=== PATIENT | male | born 1985 | race Caucasian/White ===

== ENCOUNTER 2017-10-24 18:38 | Inpatient (IN) ==
[2017-10-24 19:20] LABS: Hematocrit 41.2 % (37.5-50.1); Hemoglobin 13.2 g/dL (12.9-16.9); Mean Corpuscular Hemoglobin 27.5 pg (28.0-33.3); Mean Corpuscular Volume 85.8 fL (83.0-100.0); Mean Platelet Volume 10.5 fL (9.4-12.4); Platelet Count 232 K/mcL (140-400); Red Cell Distribution Width 15.6 % (11.5-14.5)
[2017-10-24] MEDS ORDERED: Ondansetron 4 MG/2 ML VIAL IVP ONE (19:22)
[2017-10-24] MEDS ORDERED: 0.9 % Sodium Chloride 1,000 ML IVC ONE (19:22)
[2017-10-24 19:26] LABS: INR 1.2; Prothrombin Time 12.8 Seconds (9.4-12.1)
--- NOTE | 2017-10-24 19:26 | Emergency Department Note ---
Disposition Clinical Impression: Acute liver failure Qualifiers: Hepatic coma status: without hepatic coma Qualified Code(s): K72.00 - Acute and subacute hepatic failure without coma Hepatitis C Qualifiers: Viral hepatitis chronicity: unspecified Hepatic coma status: without hepatic coma Qualified Code(s): B19.20 - Unspecified viral hepatitis C without hepatic coma Disposition: Admitted As Inpatient Condition: Fair Nausea/Vomiting/Diarrhea HPI - General Chief complaint: ED Nausea/Vomiting/Diarrhea Stated complaint: liver disease Time Seen by Provider: 10/24/17 19:16 Source: patient, family Mode of arrival: private vehicle Limitations: no limitations Nursing Notes Reviewed: Yes Vital Signs Reviewed: Yes - History of Present Illness HPI Narrative: 32-year-old male history of hepatitis C without previous treatment contracted forward a half years ago of unknown etiology who presents to the ER due to jaundice nausea vomiting abdominal pain. Patient reports abdominal pain around his belly button for the last 2 weeks. States she has had intermittent nausea and vomiting with difficulty eating. States that he started to turn yellow 2 days ago. Reports this happen once whenever he was diagnosed, once in between and now this be the third time. He does endorse a history of IV drug use most recently 3 weeks ago. He denies any history of endocarditis, fevers or valve replacements. Denies prior treatment for his hepatitis. No other complaints. Pt Subjective Complaint: nausea, vomiting, abdominal pain Onset (ago): day(s) Associated Abdominal Pain: Yes If pain, Location of pain: periumbilical Severity: moderate Improves with: nothing Worsens with: nonthing Associated symptoms: Reports: loss of appetite, nausea/vomiting. Denies: fever/ chills - Related Data Home Medications Medication Instructions Recorded Confirmed No Known Home Drugs 10/24/17 10/24/17 Allergies Allergy/AdvReac Type Severity Reaction Status Date / Time No Known Allergies Allergy Verified 10/24/17 18:43 All systems ED: reviewed and negative except as stated. Constitutional: Denies: fever Gastrointestinal: Reports: abdominal pain, nausea, vomiting. Denies: diarrhea Genitourinary: Denies: dysuria, hematuria Past Medical History - Past Medical History Attestation: Yes The following information was validated with the patient. Source: patient Medical history: Reports: hepatitis Psychiatric history: Reports: no psych history - Social History Smoking Status: Current every day smoker Smokeless Tobacco Status: No Alcohol use: Reports: none Drug use: Reports: methamphetamine, IV Drug Use Physical Exam - General Limitations: no limitations General appearance: alert, in no apparent distress - Head Head exam: atraumatic, normocephalic - Eye Eye exam: Present: normal appearance, scleral icterus - ENT ENT exam: normal exam - Neck Neck exam: Present: normal inspection, full ROM - Chest Chest inspection: Present: normal inspection, symmetric chest wall rise - Respiratory Respiratory exam: Present: normal lung sounds bilaterally - Cardiovascular Cardiovascular exam: Present: regular rate, normal rhythm, normal heart sounds - Abdominal Exam Abdominal exam: Present: soft, tenderness (Mild periumbilical tenderness without rigidity guarding or distention.). Absent: distention, guarding, rigidity - Extremities Exam Extremities exam: Present: normal inspection, full ROM - Expanded Upper Extremity Exam Shoulder exam: Present: normal inspection, full ROM Arm exam: Present: normal inspection, full ROM Elbow exam: Present: normal inspection, full ROM Forearm/Wrist exam: Present: normal inspection, full ROM Hand exam: Present: normal inspection, full ROM - Expanded Lower Extremity Exam Hip/Pelvis exam: Present: normal inspection, full ROM Upper leg exam: Present: normal inspection, full ROM Knee exam: Present: normal inspection, full ROM Lower leg exam: Present: normal inspection, full ROM Ankle exam: Present: normal inspection, full ROM Foot/toe exam: Present: normal inspection, full ROM - Skin Skin exam: Present: other (Diffuse jaundice) Course Course Narrative: Patient seen and examined. Nonsurgical abdominal exam. Note to be jaundice. We will get labs including LFTs, hepatitis profile, INR, give IV fluids and Zofran and reassess. He will also need referral to GI as he has no current follow-up with the provider. - Reevaluation(s) Reevaluation #1: Discussed results of imaging and labs with the patient and family. Agreeable with staying. Reevaluation #2: Spoke with the hospitalist that I spoke with gastroenterology who is comfortable with the patient staying here. - Consultations Consultation #1: I spoke with the on-call head of store operations Dr. Azevedo at the request of the hospitalist. Discussed the patient's history as well as labs and interventions. He is comfortable with the patient staying here and will see the patient in consultation. Vital Signs Temperature 97.9 F 02/14/18 18:43 Pulse Rate 93 10/24/17 18:43 Respiratory Rate 16 10/24/17 18:43 Blood Pressure 139/88 10/24/17 18:43 O2 Sat by Pulse Oximetry 100 10/24/17 18:43 Temperature 97.9 F 10/24/17 18:43 Pulse Rate 78 10/24/17 21:56 Respiratory Rate 18 10/24/17 21:56 Blood Pressure 121/88 10/24/17 21:56 O2 Sat by Pulse Oximetry 100 10/24/17 18:43 Oxygen Delivery Oxygen Delivery Room Air Nausea/Vomiting/Diarrhea - [facility] Narrative Medical decision making narrative: 32-year-old male presents to the ER due to jaundice and abdominal pain. History of hepatitis C. Noted to be in acute liver failure here with transaminitis. INR is normal. Creatinine is normal. He is not acidotic. Mentating appropriately. Case discussed with on-call gastrologist. Admitted to the hospitalist service. - Lab Data Lab results reviewed: Yes I reviewed the patient's lab results. Result diagrams: 10/24/17 19:01 10/24/17 19:01 Lab Results 10/24/17 10/24/17 10/24/17 Range/Units 19:01 19:01 19:01 WBC 6.0 (4.3-11.1) K/mcL RBC 4.80 (4.19-5.50) M/mcL Hgb 13.2 (12.9-16.9) g/dL Hct 41.2 (37.5-50.1) % MCV 85.8 (83.0-100.0) fL MCH 27.5 L (28.0-33.3) pg MCHC 32.0 (31.6-35.5) g/dL RDW 15.6 H (11.5-14.5) % Plt Count 232 (140-400) K/mcL MPV 10.5 (9.4-12.4) fL PT 12.8 H (9.4-12.1) Seconds INR 1.2 APTT 35.4 (26.0-36.0) Seconds Sodium 135 L (136-145) mEq/L Potassium 3.7 (3.5-5.1) mEq/L Chloride 103 (98-107) mEq/L Carbon Dioxide 27 (23-29) mEq/L BUN 9 (6-20) mg/dL Creatinine 0.97 (0.70-1.30) mg/dL Est GFR ( Amer) > 60 (> 60) Est GFR (Non-Af Amer) > 60 (> 60) BUN/Creatinine Ratio 9 (6-26) Glucose 86 (70-105) mg/dL Calculated Osmolality 278 L (280-300) Calcium 9.0 (8.6-10.3) mg/dL Total Bilirubin 11.0 H (0.3-1.0) mg/dL Direct Bilirubin 7.2 H (0.0-0.2) mg/dL Indirect Bilirubin 3.8 H (0.0-1.2) mg/dL AST 1056 H (13-39) Units/L ALT > 500 H (7-52) Units/L Alkaline Phosphatase 262 H (34-104) Units/L Serum Total Protein 7.2 (6.4-8.9) g/dL Albumin 3.8 (3.5-5.7) g/dL Globulin 3.4 (2.4-3.5) g/dL Albumin/Globulin Ratio 1.1 (1.1-2.2) Lipase 43 (11-82) Units/L Urine Color (Yellow) Urine Clarity (Clear) Urine pH (5.0-8.0) pH Units Ur Specific [place] (1.010-1.025) Urine Protein (Neg-Trace) mg/dL Urine Glucose (UA) (Normal) mg/dL Urine Ketones (Negative) mg/dL Urine Blood (Negative) Urine Nitrite (Negative) Urine Bilirubin (Negative) Urine Urobilinogen (Normal) mg/dL Ur Leukocyte Esterase (Negative) Urine Microscopic RBC (0-3) per hpf Urine Microscopic WBC (0-3) per hpf Ur Squamous Epith Cells (None-Few) per lpf Calcium Oxalate Crystal Urine Bacteria (None-Few) per hpf Hyaline Casts (None-Few) per lpf Hepatitis A IgM Ab (Nonreactive) Hep Bs Antigen (Nonreactive) Hep B Core IgM Ab (Nonreactive) Hepatitis C Ab Screen (Nonreactive) 10/24/17 10/24/17 Range/Units 19:40 20:13 WBC (4.3-11.1) K/mcL RBC (4.19-5.50) M/mcL Hgb (12.9-16.9) g/dL Hct (37.5-50.1) % MCV (83.0-100.0) fL MCH (28.0-33.3) pg MCHC (31.6-35.5) g/dL RDW (11.5-14.5) % Plt Count (140-400) K/mcL MPV (9.4-12.4) fL PT (9.4-12.1) Seconds INR APTT (26.0-36.0) Seconds Sodium (136-145) mEq/L Potassium (3.5-5.1) mEq/L Chloride (98-107) mEq/L Carbon Dioxide (23-29) mEq/L BUN (6-20) mg/dL Creatinine (0.70-1.30) mg/dL Est GFR ( Amer) (> 60) Est GFR (Non-Af Amer) (> 60) BUN/Creatinine Ratio (6-26) Glucose (70-105) mg/dL Calculated Osmolality (280-300) Calcium (8.6-10.3) mg/dL Total Bilirubin (0.3-1.0) mg/dL Direct Bilirubin (0.0-0.2) mg/dL Indirect Bilirubin (0.0-1.2) mg/dL AST (13-39) Units/L ALT (7-52) Units/L Alkaline Phosphatase (34-104) Units/L Serum Total Protein (6.4-8.9) g/dL Albumin (3.5-5.7) g/dL Globulin (2.4-3.5) g/dL Albumin/Globulin Ratio (1.1-2.2) Lipase (11-82) Units/L Urine Color [place] A (Yellow) Urine Clarity Cloudy A (Clear) Urine pH 6.0 (5.0-8.0) pH Units Ur Specific [place] 1.022 (1.010-1.025) Urine Protein Negative (Neg-Trace) mg/dL Urine Glucose (UA) Normal (Normal) mg/dL Urine Ketones Negative (Negative) mg/dL Urine Blood Negative (Negative) Urine Nitrite Positive A (Negative) Urine Bilirubin Large H (Negative) Urine Urobilinogen Normal (Normal) mg/dL Ur Leukocyte Esterase Small H (Negative) Urine Microscopic RBC 3-5 H (0-3) per hpf Urine Microscopic WBC 0-3 (0-3) per hpf Ur Squamous Epith Cells None Seen (None-Few) per lpf Calcium Oxalate Crystal Present Urine Bacteria Few (None-Few) per hpf Hyaline Casts None Seen (None-Few) per lpf Hepatitis A IgM Ab Nonreactive (Nonreactive) Hep Bs Antigen Reactive H (Nonreactive) Hep B Core IgM Ab Reactive H (Nonreactive) Hepatitis C Ab Screen Reactive H (Nonreactive) - Radiology Data Radiology results reviewed: Yes I reviewed the patient's radiology results. Abdomen/Pelvis CT 10/24/17 20:31 IMPRESSION: 1. Large amount of stool throughout the colon suggesting constipation. Otherwise, no acute abdominopelvic abnormality. 2. Findings of mild acute bronchiolitis in the right middle lobe. D/ / Catrachito Best / Catrachito Best Interpreting Provider: Catrachito Best S.Janette.Bridgette - Renee Situation: Demographics, MOA Background: Presenting Complaint, Relevant PMH, Meds, & Allergies Assessment: Course and respsone to treatment, Exam Concerns, Patient/Family Expectation, Pertinant Lab Results Recommendation: Barrier(s) to disposition, Recommendation based on pending studies, treatments, or consults S.B.A.Rosetta Report Given to: Dr. Kimo Duran Repor Time: 22:22 (Request I speak with gastroenterology) Attestation Statement - Attestation Attestation: I, Santiago Cagle MD, personally evaluated this patient and discussed their management with the resident physician. I reviewed the resident's note and agree with the documented findings, medical decision making, and plan of care. 32-year-old male with known history of hepatitis C and is not on any treatment presents complaining of periumbilical abdominal pain associated with nausea and vomiting for 2 weeks prior to arrival. Over the past few days he has noticed some jaundice. He also states his urine has been very dark colored for the past 2 weeks. No fever. No melena, hematemesis, or hematochezia. On examination patient is a well-developed well-nourished well-appearing male in no acute distress. He is alert and oriented 3. There is no cyanosis or diaphoresis. There is mild jaundice and scleral icterus. Breath sounds are clear and equal bilaterally. Heart regular rate and rhythm. Abdomen is soft with normal bowel sounds. There is mild epigastric and right upper quadrant tenderness as well as periumbilical tenderness. No guarding or rebound tenderness. No tympany or distention. No CVA tenderness. Labs reviewed. Total bilirubin 11.0 with elevated hepatic enzymes. CT of abdomen and pelvis shows constipation and some bronchiolitis in the right middle lobe. Otherwise no acute abnormality. Dr. Romo discussed the case with the head of store operations, Dr. Azevedo, at the request of the hospitalist. He is agreeable with keeping patient here. The hospitalist , Dr. Malin, was consulted and accepted admission of the patient.
[2017-10-24 19:29] LABS: Activated Partial Thrombo Time 35.4 Seconds (26.0-36.0)
[2017-10-24 19:49] LABS: Bilirubin,Urine Large (Negative); Blood,Urine Negative (Negative); Clarity,Urine Cloudy (Clear); Color,Urine Orange (Yellow); Glucose,Urine (UA) Normal (Normal); Ketones,Urine Negative (Negative); Leukocyte Esterase,Urine Small (Negative); Nitrite,Urine Positive (Negative); Protein,Urine Negative (Neg-Trace); Specific Gravity,Urine 1.022 (1.010-1.025); Urobilinogen,Urine Normal (Normal)
[2017-10-24 19:51] LABS: Hyaline Casts,Urine None Seen per lpf (None-Few); Squamous Epithelial Cell,Urine None Seen per lpf (None-Few); WBC,Urine 0-3 per hpf (0-3)
[2017-10-24 20:00] LABS: Bacteria,Urine Few per hpf (None-Few); Calcium Oxalate Crystals,Urine Present
[2017-10-24 20:04] LABS: Alanine Aminotransferase > 500 Units/L (7-52); Albumin 3.8 g/dL (3.5-5.7); Albumin/Globulin Ratio 1.1 (1.1-2.2); Alkaline Phosphatase 262 Units/L (34-104); Aspartate Amino Transferase 1056 Units/L (13-39); BUN/Creatinine Ratio 9 (6-26); Bilirubin,Direct 7.2 mg/dL (0.0-0.2); Bilirubin,Indirect 3.8 mg/dL (0.0-1.2); Blood Urea Nitrogen 9 mg/dL (6-20); Carbon Dioxide 27 mEq/L (23-29); Chloride 103 mEq/L (98-107); Globulin 3.4 g/dL (2.4-3.5); Glucose 86 mg/dL (70-105); Lipase 43 Units/L (11-82); Osmolality,Calculated 278 (280-300); Potassium 3.7 mEq/L (3.5-5.1); Sodium 135 mEq/L (136-145); Total Protein 7.2 g/dL (6.4-8.9); eGFR For African Americans > 60 (> 60); eGFR For Non-African Americans > 60 (> 60)
[2017-10-24 22:08] LABS: Hepatitis A Antibody IgM Nonreactive (Nonreactive)
[2017-10-24 22:27] LABS: Hepatitis B Core IgM Reactive (Nonreactive); Hepatitis B Surface Antigen Reactive (Nonreactive)
[2017-10-24 22:28] LABS: Hepatitis C Virus Antibody Reactive (Nonreactive)
--- NOTE | 2017-10-24 23:58 | Internal Med History&Physical ---
<Kaila Garcia - Last Filed: 10/25/17 05:21> Date of Encounter: 10/25/17 Time of Encounter: 23:58 Assessment and Plan (1) Hepatitis B Current visit: Yes Status: Acute Hepatitis panel shows Hep B surface antigen reactive and Hep B core IgM antibody reactive--unclear whether this is an acute infection or flare-up of chronic Hep B, as these results can occur in both acute and chronic forms of Hep B. According to pt's mother, pt had childhood Hep B immunizations, but pt missed what sounds like Hep B booster shot around the time he was diagnosed with Hep C. - Gastroenterology aware, consult pending--recommendations appreciated Qualifiers: Viral hepatitis chronicity: unspecified Hepatic coma status: without hepatic coma (2) Transaminitis Current visit: Yes Status: Acute Initial labwork shows AST 1056 and ALT > 500. Degree of elevation in transaminases and increased AST:ALT ratio possibly related to flare of pt's chronic Hep C or infection with Hep B. - monitor AST and ALT levels with morning CMP - avoid hepatoxic drugs and use hepatic dosing when possible (3) Hepatitis C without hepatic coma Current visit: Yes Status: Chronic Known h/o untreated Hep C, hepatitis screen shows reactivity with Hep C antibody. Hep C diagnosed 4 to 5 years ago, per pt. - Gastroenterology aware, consult pending--recommendations appreciated - [place] precautions for bloodborne pathogen - Avoid hepatotoxic drugs and use hepatic dosing if possible (4) Abdominal pain Current visit: Yes Status: Acute Likely d/t constipation as evidenced on imaging--CT abdomen pelvis demonstrates large amount of stool in colon that is suggestive of constipation; no other acute abdominopelvic abnormality. Non tender to palpation of RUQ, LUQ, or midepigastric area. Lipase WNL. Symptomatic management at this time. - Famotidine 20mg PO BID - Clear liquid diet for now - Ketorolac 15mg IVP q6h PRN for pain Qualifiers: Abdominal location: right lower quadrant Qualified Code(s): R10.31 - Right lower quadrant pain (5) Nausea & vomiting Current visit: Yes Status: Acute Based on initial labs and overall appearance, pt doesn't appear dehydrated. Potassium and chloride WNL on initial labs. - Recheck electrolytes in AM, replace as needed - IV fluids--NS @ 100mL/hr - Clear liquid diet for now - Zofran PRN (6) Hyperbilirubinemia Current visit: Yes Status: Acute Internal Medicine - H&P: HPI Chief complaint: N/V, jaundice Admitted From: Home History of present illness: Mr. Cabezas is a 32 year old male with PMH of Hep C and IVDU who presents with c/ o jaundice x 3 days, N/V and abdominal pain x2 weeks. Patient states he can't keep anything down and that nothing improves his nausea and vomiting other than not eating; pt states N/V worse after eating meat, but doesn't elaborate further. Tolerating liquids well. He denies coffee-ground emesis and doesn't think he's had blood in his vomit, but has had red-tinged vomit which he attributes to something he's eaten. Pt's abdominal pain is located along lower abdomen, described as dull and squeezing. The abdominal pain is constant with occasional increases in severity which pt is unable to connect to any specific action. He denies diarrhea and constipation. Admits to increased heartburn and is taking antacids for this. This isn't pt's first time having jaundice, last episode was 4 to 5 years ago--it was also around this time he was diagnosed with Hep C. He has never received treatment for Hep C. Pt states he last used IV drugs 3 to 4 weeks ago, doesn't remember what kind of drugs he injected. He denies any previous h/o endocarditis or problems with heart valves, but admits to occasional palpitations--his mother, also present in the room, thinks he may have been diagnosed with a murmur in childhood. He denies associated fevers, chills, night sweats, chest pain, edema, dyspnea, cough. Past Med Surg Social Fam HX - Past Medical History Medical history: hepatitis Psychiatric history: no psych history - Social History Smoking Status: Current every day smoker Smokeless Tobacco Status: No Alcohol use: none Drug use: methamphetamine, IV Drug Use - Family History Mother Adopted: No Hx Family Musculoskeletal Disorders: Yes (hip replacements.) Internal Medicine - H&P: Meds No Known Home Drugs 10/24/17 [History] 3 Allergy/AdvReac Type Severity Reaction Status Date / Time No Known Allergies Allergy Verified 10/24/17 18:43 All Systems PM: A 10-system review of systems was performed and is negative for pertinent findings except as documented above in the HPI. - Constitutional Constitutional: no chills, no fever(s), no night sweats - EENT Eyes: no blurry vision, no change in vision, no diplopia - Cardiovascular Cardiovascular ROS IM: palpitations, no chest pain, no diaphoresis, no dyspnea, no edema, no irregular heart rhythm - Respiratory Respiratory: no cough, no dyspnea, no wheezing - Gastrointestinal Gastrointestinal: as per HPI - Constitutional Vitals: Temp Pulse Resp BP Pulse Ox 97.9 F 78 18 121/88 100 10/24/17 18:43 10/24/17 21:56 10/24/17 22:57 10/24/17 22:57 10/24/17 18:43 General appearance: Present: A&O X 3, no acute distress, answers questions appropriately Exam: jaundice, scleral icterus - Head Head exam: Present: atraumatic, normocephalic - Eye Eye exam: Present: EOMI, PERRL, scleral icterus - Neck Neck exam general surgery: Present: full ROM, supple - Respiratory Respiratory exam: Present: CTAB. Absent: respiratory distress, wheezes - Cardiovascular Cardiovascular exam: Present: RRR, +S1, +S2 Additional comments: no murmurs auscultated - GI/Abdominal GI/Abdominal exam: Present: guarding (voluntary), normal bowel sounds, soft, tenderness (LLQ, RLQ), no peritoneal signs. Absent: distended, rebound, rigid - Extremities Exam Extremities exam: Present: full ROM, warm. Absent: pedal edema Additional comments: DP pulses 2+ - Back Exam Back exam: Present: normal inspection - Neurological Exam Neurological exam: Present: alert, CN II-XII intact, no focal deficits - Expanded Neurological Exam Patient oriented to: Present: person, place, time Speech: Present: fluid speech - Psychiatric Psychiatric exam: Present: normal affect, normal mood - Skin Skin exam: Present: warm. Absent: diaphoretic, erythema, petechiae Additional comments: jaundice Internal Med - H&P Results - Labs CBC & Chem 7: 10/25/17 03:56 10/24/17 19:01 <Salma Malin - Last Filed: 10/25/17 05:22> Date of Encounter: 10/25/17 Internal Medicine - H&P: HPI History of present illness: Mr. Cabezas is a 32 year old male All Systems PM: A 10-system review of systems was performed and is negative for pertinent findings except as documented above in the HPI. - Constitutional Vitals: Temp Pulse Resp BP Pulse Ox 98.1 F 86 15 115/72 96 10/25/17 03:47 10/25/17 03:47 10/25/17 03:47 10/25/17 03:47 10/25/17 03:47 Internal Med - H&P Results - Labs CBC & Chem 7: 10/25/17 03:56 10/24/17 19:01 Labs: Short CBC 10/25/17 Range/Units 03:56 WBC 6.3 (4.3-11.1) K/mcL Hgb 12.0 L (12.9-16.9) g/dL Hct 36.5 L (37.5-50.1) % Plt Count 221 (140-400) K/mcL Neutrophils # 2.8 (1.6-8.9) K/mcL - Attending Attestation I have seen and examined this pt independently. I have discussed with resident physician Dr Garcia regarding the management plan. Agree with the documentation.
[2017-10-25] MEDS ORDERED: Naloxone 0.4 MG/ML INJ IVP PRN (00:49)
[2017-10-25] MEDS ORDERED: Ondansetron 4 MG/2 ML VIAL IVP PRN (00:52)
[2017-10-25] MEDS ORDERED: Famotidine 20 MG/2 ML VIAL IVP ONE (00:55)
[2017-10-25] MEDS ORDERED: *HR* OxyCODONE/APAP 5/325 TABLET PO PRN (01:54)
[2017-10-25] MEDS: 0.9 % Sodium Chloride 1,000 ML IVC SCH ×2 (04:05→10:07)
[2017-10-25] MEDS: Ketorolac 15 MG/ML VIAL IVP PRN ×2 (04:12→10:06)
[2017-10-25 04:25] LABS: Basophils % 0.6 %; Eosinophils # 0.2 K/mcL (0.0-0.6); Eosinophils % 2.9 %; Hematocrit 36.5 % (37.5-50.1); Immature Granulocytes % 0.3 % (0-4); Lymphocytes # 2.5 K/mcL (0.6-4.6); Mean Corpuscular HGB Conc 32.9 g/dL (31.6-35.5); Mean Corpuscular Hemoglobin 27.6 pg (28.0-33.3); Mean Corpuscular Volume 83.9 fL (83.0-100.0); Mean Platelet Volume 10.9 fL (9.4-12.4); Monocytes # 0.7 K/mcL (0.0-1.3); Monocytes % 11.8 %; Neutrophils # 2.8 K/mcL (1.6-8.9); Nucleated Red Blood Cells 0.8 /100 WBC (0); Platelet Count 221 K/mcL (140-400); Red Blood Count 4.35 M/mcL (4.19-5.50); Red Cell Distribution Width 15.6 % (11.5-14.5); Segmented Neutrophils % 44.4 %
[2017-10-25 04:34] LABS: Activated Partial Thrombo Time 34.3 Seconds (26.0-36.0); INR 1.3; Prothrombin Time 14.4 Seconds (9.4-12.1)
[2017-10-25 05:59] LABS: Alanine Aminotransferase > 500 Units/L (7-52); Albumin 3.4 g/dL (3.5-5.7); Albumin/Globulin Ratio 1.1 (1.1-2.2); Alkaline Phosphatase 220 Units/L (34-104); Aspartate Amino Transferase 1053 Units/L (13-39); BUN/Creatinine Ratio 9 (6-26); Bilirubin,Total 10.8 mg/dL (0.3-1.0); Blood Urea Nitrogen 7 mg/dL (6-20); Calcium 9.1 mg/dL (8.6-10.3); Carbon Dioxide 28 mEq/L (23-29); Chloride 104 mEq/L (98-107); Glucose 85 mg/dL (70-105); Magnesium 2.2 mg/dL (1.6-2.6); Osmolality,Calculated 281 (280-300); Sodium 137 mEq/L (136-145); Total Protein 6.4 g/dL (6.4-8.9); eGFR For African Americans > 60 (> 60); eGFR For Non-African Americans > 60 (> 60)
[2017-10-25] MEDS ORDERED: *HR* Heparin 5,000 UNIT/ML VIAL SQ SCH (06:00)
[2017-10-25] MEDS ORDERED: Famotidine 20 MG TABLET PO SCH (09:00)
[2017-10-25] MEDS ORDERED: Sennosides 8.6 MG TABLET PO PRN (09:13)
--- NOTE | 2017-10-25 10:43 | Internal Med Progress Note ---
Date of Encounter: 10/25/17 - Assessment and plan (1) Transaminitis Current Visit: Yes Status: Acute Assessment and plan: AST 1056 and ALT > 500. Degree of elevation in transaminases most likely related to flare of patients chronic Hep C and/or acute Hep B. Previously normal LFTs 2 years ago Plans: - GI consulted, awaiting recommendations - continue IV fluids NS 100ml/hr (2) Hepatitis C without hepatic coma Current Visit: Yes Status: Chronic Assessment and plan: Diagnosed 4 years ago. Untreated as patient is still currently using IV drugs Plans: -GI consulted, awaiting recommendations (3) Hepatitis B Current Visit: Yes Status: Acute Assessment and plan: Acute hepatitis B. Plan: - GI consulted awaiting recommendations Qualifiers: Viral hepatitis chronicity: unspecified Hepatic coma status: without hepatic coma (4) Nausea & vomiting Current Visit: Yes Status: Acute Assessment and plan: Plan: - IV fluids--NS @ 100mL/hr - Clear liquid diet, consider advancing today - Zofran PRN (5) Hyperbilirubinemia Current Visit: Yes Status: Acute (6) Abdominal pain Current Visit: Yes Status: Acute Assessment and plan: CT scan showed constipation but also probably 2/2 to hepatitis C and B. Famotidine 20mg PO BID - Clear liquid diet for now - Ketorolac 15mg IVP q6h PRN for pain Qualifiers: Abdominal location: right lower quadrant Qualified Code(s): R10.31 - Right lower quadrant pain - Constitutional Vitals: Temp Pulse Resp BP Pulse Ox 97.7 F 73 14 114/76 98 10/25/17 07:10 10/25/17 07:10 10/25/17 07:10 10/25/17 07:10 10/25/17 07:10 General appearance: Present: A&O X 3, no acute distress, answers questions appropriately Internal Medicine: Result - Labs CBC & Chem 7: 10/25/17 03:56 10/25/17 03:56 - ABG Interpretation ABG results: PT/INR, D-dimer PT 14.4 Seconds (9.4-12.1) H 10/25/17 03:56 Consult Discharge Plan - Plan Referrals: NONE,PCP [Primary Care Provider] -
[2017-10-25 10:52] VITALS: BP 125/75
--- NOTE | 2017-10-25 14:22 | Discharge Summary ---
<Delaney Chua - Last Filed: 10/25/17 16:04> Date of Encounter: 10/25/17 Time of Encounter: 14:18 - Discharge Diagnosis (1) Transaminitis Priority: Secondary Status: Acute (2) Hepatitis C without hepatic coma Priority: Secondary Status: Chronic Qualifiers: Viral hepatitis chronicity: chronic Qualified Code(s): B18.2 - Chronic viral hepatitis C (3) Hepatitis B Priority: Primary Status: Acute Qualifiers: Viral hepatitis chronicity: unspecified Hepatic coma status: without hepatic coma Qualified Code(s): B19.10 - Unspecified viral hepatitis B without hepatic coma (4) Nausea & vomiting Priority: Secondary Status: Acute Qualifiers: Vomiting Intractability: non-intractable Qualified Code(s): R11.2 - Nausea with vomiting, unspecified (5) Hyperbilirubinemia Priority: Secondary Status: Acute (6) Abdominal pain Priority: Secondary Status: Acute Qualifiers: Abdominal location: right lower quadrant Qualified Code(s): R10.31 - Right lower quadrant pain - Discharge Medications Prescriptions: Ondansetron ODT [Zofran ODT] 4 mg PO Q6HR PRN #20 tab.rapdis PRN Reason: Nausea And Vomiting Home Medications: Ondansetron ODT [Zofran ODT] 4 mg PO Q6HR PRN #20 tab.rapdis 10/25/17 [Rx] Allergies/Adverse Reactions: 3 Allergy/AdvReac Type Severity Reaction Status Date / Time No Known Allergies Allergy Verified 10/24/17 18:43 Date of admission: 10/25/17 05:09 Primary care physician: PCP NONE Consults: 10/25/17 11:23 Consult to Vault Installer [CONS] Routine Reason for SW Consult: IV drug use Discharging clinician: Rashawn Monroe Anticipated date of discharge: 10/25/17 - Patient Status Disposition: Left Against Medical Advice Condition: Fair Functional capacity at discharge: independent ambulation Overall status at discharge: patient is not back to baseline - Discharge Instructions Follow Up With: Andria Radford MD [Non-Partnered Physician] - 11/05/17 9:30 am Additional Instructions: Follow-up with your primary care physician 2-3 days. You will may follow-up with the residency clinic if you do not have a provider. - Diet and Activity Activity: increase activity as tolerated Diet: advance to your usual diet Hospital course: Mr. Cabezas is a 32 year old male with past medical history of hepatitis B and IV drug use presented to the ED with complaints of jaundice nausea and vomiting , and abdominal pain and was found to have acute hepatitis B and transaminitis. Abdominal CT only found constipation. GI was consult to that and informed him that he needs to stop using drugs and alcohol for 6 months before acute by mouth to be treated for hepatitis B and C. patient decided that we were not doing anything for him and therefore he decided that it would be better for him to leave AMA. Patient was instructed that he is at risk for worsening of his disease process and possible risks of the left patient understood the implications of leaving. Patient was given Zofran and instructed to f/u with a PCP in 2-3 days. - Time Spent with Patient Total time spent providing and/or coordinating discharge services: - Constitutional Vitals: Temp Pulse Resp BP Pulse Ox 97.4 F L 88 14 125/75 97 10/25/17 10:52 10/25/17 10:52 10/25/17 10:52 10/25/17 10:52 10/25/17 10:52 General appearance: Present: A&O X 3, no acute distress, answers questions appropriately - Other Additional findings: Constitutional: Alert, in no acute distress, well nourished, well developed. Head: Normocephalic, atraumatic, normal contour and symmetric, no masses, lesions or scars Eyes: Scleral icterus, EOMI Heart: Normal, regular rate and rhythm, no murmurs Lungs: Clear to auscultation, no wheezes, rales, or rhonchi Abdomen: tenderness present in RUQ and RLQ, no hepatomegaly Soft, nondistended, nontender, and no masses palpable, bowel sounds present and normal, no guarding or rigidity. Extremities: No clubbing, cyanosis, or edema, radial pulse +2/4, capillary refill <2sec. Skin: Skin warm and dry, no lesions, no rashes, jaundice Neurologic: Cranial nerves II through XII grossly intact, no focal deficits, strength within normal limits in all extremities Psych: Cooperative with exam, good eye contact, cognitive function intact, judgment good insight good, speech clear, thought process logical, and goal directed <Rashawn Monroe - Last Filed: 10/25/17 17:46> Date of Encounter: 10/25/17 Date of admission: 10/25/17 05:09 Primary care physician: PCP NONE Consults: 10/25/17 11:23 Consult to Vault Installer [CONS] Routine Reason for SW Consult: IV drug use Hospital course: Mr. Cabezas is a 32 year old male - Time Spent with Patient Total time spent providing and/or coordinating discharge services: - Constitutional Vitals: Temp Pulse Resp BP Pulse Ox 97.4 F L 88 14 125/75 97 10/25/17 10:52 10/25/17 10:52 10/25/17 10:52 10/25/17 10:52 10/25/17 10:52 - Attending Attestation I did not examine this patient and my medical decision-making was reviewed with the Resident Physician. I agree with the documented findings, disposition and treatment plan as described except to the extent set forth below. Unfortunately he left AMA, before I could see him.
--- NOTE | 2017-10-25 14:58 | Gastroenterology Consult Note ---
Date of Encounter: 10/26/17 Time of Encounter: 12:00 - Assessment and plan (1) Hepatitis B Status: Acute Assessment and plan: Jaundice, abdominal pain, nausea, vomiting, and LFTs may be due to acute infection with Hepatitis B. Would recommend supportive care at this time. He is advised he needs to avoid hepatotoxic drugs and etoh. He is advised he has to be clear for 6 months before he can started any treatment for hepatitis. He states he wants to go home. Pt is advised that hepatitis can lead to cirrhosis of the liver, liver cancer and . Qualifiers: Viral hepatitis chronicity: acute Hepatic coma status: without hepatic coma Hepatitis delta agent presence: without delta-agent Qualified Code(s): B16.9 - Acute hepatitis B without delta-agent and without hepatic coma (2) Hepatitis C without hepatic coma Status: Chronic Assessment and plan: Pt was diagnosed with Hep C 4 years ago. He has not been treated. He presented with abdominal pain, jaundice and nausea and vomiting. LFTs very elevated. L Qualifiers: Viral hepatitis chronicity: chronic Qualified Code(s): B18.2 - Chronic viral hepatitis C (3) Nausea & vomiting Status: Acute Assessment and plan: supportive treatment Qualifiers: Vomiting Intractability: non-intractable Qualified Code(s): R11.2 - Nausea with vomiting, unspecified (4) Hyperbilirubinemia Status: Acute Assessment and plan: T bili 10.8, likely due to acute hepatitis B infection. - Time Spent With Patient Total time spent is greater than 50% in coordination of care (as documented) at patient's floor/unit and/or counseling patient: GI History of Present Illness - Data of Consult Patient: new to practice Consult date: 10/25/17 Requesting Physician: Rashawn Monroe - Consult Narrative Reason for consult: elevated LFTs History of present illness: Mr. Cabezas is a 32 year old male with PMH of Hep C and IVDU who presents with c/ o jaundice x 3 days, N/V and abdominal pain x2 weeks. Patient states he was not able to keep anything down but has been feeling better on liquid diet. Pt's abdominal pain is located along lower abdomen, described as dull and squeezing. The abdominal pain is constant with occasional increases in severity which pt is unable to connect to any specific action. He denies diarrhea and constipation. He denies hematemesis. He admits to increased heartburn and is taking antacids for this. He reports similiar episode of jaundice 4 to 5 years ago--it was also around this time he was diagnosed with Hep C. He has never received treatment for Hep C. Pt reports using IV drugs 3 to 4 weeks ago, doesn' t remember what kind of drugs he injected. He denies associated fevers, chills, night sweats, chest pain, edema, dyspnea, cough. Colonoscopy: denies EGD: denies NSAIDS/ASA: denies Anticoagulants: Heparin Past Med Surg Social Fam HX - Past Medical History Medical history: hepatitis Psychiatric history: no psych history - Social History Smoking Status: Current every day smoker Smokeless Tobacco Status: No Alcohol use: none Drug use: methamphetamine, IV Drug Use - Family History Mother Adopted: No Hx Family Musculoskeletal Disorders: Yes (hip replacements.) Review of Systems: GI: as per [place] GENERAL: denies fever or chills EYES: denies yellow discoloration ENT: denies pain with swallowing or difficulty swallowing CARDIO: denies chest pain, palpitations RESP: No Shortness of breath with exertion : denies change in color of urine NEURO: denies any weakness HEME: Denies any bruising MS: denies joint pain, joint swelling or back pain. DERM: denies rash or itching PSYCH: history of anxiety or depression - Constitutional Vitals: Temp Pulse Resp BP Pulse Ox 97.4 F L 88 14 125/75 97 10/25/17 10:52 10/25/17 10:52 10/25/17 10:52 10/25/17 10:52 10/25/17 10:52 Exam: CONSTITUTIONAL:~alert, no acute distress.~HEAD:~normocephalic.~EYES:~jaundice noted.~NECK:~no obvious swelling.~HEART:~regular rate and rhythm, no murmurs.~ LUNGS:~bilateral good air entry.~ABDOMEN:~non distended, soft, tender throughout , worse to lower extremeties, no masses palpable.~RECTAL EXAM:~Deferred.~ EXTREMITIES:~no clubbing, cyanosis or edema.~SKIN:~no stigmata of chronic liver disease.~NEUROLOGIC:~no obvious focal defect.~~~~ Results - Labs CBC & Chem 7: 10/25/17 03:56 10/25/17 03:56 Labs: Last Result Calcium 9.1 mg/dL (8.6-10.3) 10/25/17 03:56 Entire Visit Hgb 12.0 g/dL (12.9-16.9) L 10/25/17 03:56 Hct 36.5 % (37.5-50.1) L 10/25/17 03:56 PT 14.4 Seconds (9.4-12.1) H 10/25/17 03:56 Total Bilirubin 10.8 mg/dL (0.3-1.0) H 10/25/17 03:56 AST 1053 Units/L (13-39) H 10/25/17 03:56 ALT > 500 Units/L (7-52) H 10/25/17 03:56 Lipase 43 Units/L (11-82) 10/24/17 19:01 - ABG ABG results: PT/INR, D-dimer PT 14.4 Seconds (9.4-12.1) H 10/25/17 03:56 Consult Discharge Plan - Plan Additional Instructions: Follow-up with your primary care physician 2-3 days. You will may follow-up with the residency clinic if you do not have a provider. Referrals: Andria Radford MD [Non-Partnered Physician] - 11/05/17 9:30 am Prescriptions: Ondansetron ODT [Zofran ODT] 4 mg PO Q6HR PRN #20 tab.rapdis PRN Reason: Nausea And Vomiting
== END 2017-10-25 14:30 | disposition left against medical advice (07) ==
LOC: EMEROO 18:38 → 3ANU 18:38
PROVIDERS: ADMIT Internal Medicine; ATTEND Internal Medicine